=== PATIENT | male | born 1960 | race Caucasian/White ===

== ENCOUNTER → 2020-09-29 | Day surgery (SDC) | payer OTHER ==
[~2020-09-29] MED LIST: FLOVENT HFA12 GM INH; PRILOSEC20 MG PO; PRINIVIL20 MG PO
== END | disposition home or self-care (01) ==
LOC: FAS 08:45
DX: K21.9 Gastro-esophageal reflux disease without esophagitis (principal); K22.2 Esophageal obstruction; K44.9 Diaphragmatic hernia without obstruction or gangrene; I10 Essential (primary) hypertension; K27.9 Peptic ulcer, site unspecified, unspecified as acute or chronic, without hemorrhage or perforation; Z79.899 Other long term (current) drug therapy; Z90.49 Acquired absence of other specified parts of digestive tract
CPT/HCPCS: C1726; J2250; J2704; J7120